=== PATIENT | male | born 1975 | race Hispanic/Latino ===

== ENCOUNTER 2021-03-12 14:05 | Inpatient (IN) | payer OTHER, SELFPAY ==
[~2021-03-12] VITALS: Ht 165.1 cm; Wt 96.2 kg
[2021-03-12] MEDS ORDERED: ASPIRIN 325 MG TABLET ONE (14:38)
[2021-03-12 14:40] LABS: BASOPHILS % (AUTO) 0.5 % (0.0-5.0); EOSINOPHILS % (AUTO) 0.2 % (0.0-8.0); HEMATOCRIT 47.3 % (42-54); LYMPHOCYTES % (AUTO) 23.2 % (21.0-51.0); MEAN CORPUSCULAR HEMOGLOBIN 34.3 pg (27.0-33.0); MEAN CORPUSCULAR HGB CONC 38.7 g/dL (32.0-36.0); MEAN CORPUSCULAR VOLUME 88.6 fL (79-99); MONOCYTES % (AUTO) 6.4 % (3.0-13.0); NEUTROPHILS % (AUTO) 69.1 % (40.0-77.0); PLATELET COUNT (AUTO) 292 K/uL (130-400); RED BLOOD CELL COUNT(AUTO) 5.34 MIL/uL (4.50-6.20); RED CELL DISTRIBUTION WIDTH 11.3 % (11.0-15.5); WHITE BLOOD COUNT (AUTO) 11.3 K/uL (4.8-10.8)
[2021-03-12 14:41] LABS: POTASSIUM 3.6 mmol/L (3.5-5.1)
[2021-03-12 14:46] LABS: ALBUMIN 4.2 g/dL (3.5-5.0); BILIRUBIN,TOTAL 0.8 mg/dL (0.2-1.0); TOTAL PROTEIN, SERUM 7.8 g/dL (6.0-8.3)
[2021-03-12] MEDS ORDERED: IOHEXOL-350 75 ML VIAL IV ONE (15:56)
[2021-03-12] MEDS ORDERED: NITROGLYCERIN 0.4 MG SL TAB SL PRN (16:00)
[2021-03-12] MEDS ORDERED: METOPROLOL TARTRATE 25 MG TAB PO SCH ×2 (16:00→21:00)
[2021-03-12 16:18] LABS: APPEARANCE,URINE Clear (CLEAR); BILIRUBIN,URINE Negative (NEGATIVE); COLOR,URINE Yellow (YELLOW); GLUCOSE, URINE (UA) >=1000 mg/dL (NEGATIVE); KETONES,URINE >=80 mg/dL (NEGATIVE); LEUKOCYTE ESTERASE ,URINE Negative (NEGATIVE); NITRATE,URINE Negative (NEGATIVE); OCCULT BLOOD,URINE Negative (NEGATIVE); PROTEIN,URINE Negative (NEGATIVE); UROBILINOGEN,URINE 0.2 mg/dL (0.2-1.0)
[2021-03-12 16:21] LABS: HEMOGLOBIN A1C 10.3 % (4.0-6.0)
[2021-03-12] MEDS ORDERED: HEPARIN 5,000 UNIT VIAL ONE (16:25)
[2021-03-12] MEDS ORDERED: HEPARIN 25,000 UNITS/250ML D5W 250 ML IV ONE (16:26)
[2021-03-12 16:37] LABS: CHOLESTEROL 348 mg/dL (<200); LDL DIRECT 83 mg/dL (0-99)
[2021-03-12 16:51] LABS: BACTERIA,URINE Few /HPF (None Seen); MUCUS,URINE Rare LPF (None Seen); RBC,URINE 0-1 /HPF (0-1); SQUAMOUS EPITHELIAL CELL,UR 0-2 /HPF (0-2); WBC,URINE 0-1 /HPF (0-1)
[2021-03-12 16:53] LABS: HDL CHOLESTEROL 343 mg/dL (29-71); TRIGLYCERIDES 2130 mg/dL (30-200)
[2021-03-12] MEDS ORDERED: CLOPIDOGREL 300MG TAB ONE ×2 (17:33→22:55)
[2021-03-12] MEDS ORDERED: METOPROLOL TARTRATE 25 MG TAB ONE (17:34)
[2021-03-12] MEDS ORDERED: CLOPIDOGREL 300MG TAB PO SCH (17:45)
[2021-03-12] MEDS ORDERED: PHARMACY COMMUNICATION MISC SCH (18:00)
[2021-03-12] MEDS ORDERED: HEPARIN 5,000 UNIT VIAL IV PRN (20:15)
[2021-03-12] MEDS ORDERED: HEPARIN 25000 UNITS/D5W 250ML IV SCH (20:15)
[2021-03-12] MEDS ORDERED: ATORVASTATIN 20 MG TABLET PO SCH (21:00)
[2021-03-12] MEDS: INSULIN HUMULIN R 100 UNIT/ML 3ML SQ SCH (21:00)
[2021-03-12] MEDS: FISH OIL 1000 MG/CAP PO SCH (21:00)
[2021-03-12] MEDS ORDERED: INSULIN GLARGINE 100 UNITS/ML 10 ML VIAL SQ SCH (21:00)
[2021-03-12] MEDS ORDERED: ATORVASTATIN 40 MG TABLET ONE (21:27)
[2021-03-12] MEDS ORDERED: INSULIN HUMULIN R 100 UNIT/ML 3ML ONE (21:28)
[2021-03-12] MEDS ORDERED: NITROGLYCERIN 1GM OINT 1 INCH/1GM TD ONE (22:55)
[2021-03-12] MEDS ORDERED: LORAZEPAM 2 MG/ML 1 ML VIAL IVP ONE (23:45)
[2021-03-12] MEDS ORDERED: LORAZEPAM 2 MG/ML 1 ML VIAL ONE (23:45)
[2021-03-13 00:54] LABS: INR 1.18 (0.85-1.15); PARTIAL THROMBOPLASTIN TIME 57.4 SEC (26.3-35.5); PROTHROMBIN TIME 12.2 SEC (9.6-11.6)
[2021-03-13 01:22] VITALS: BP 117/82
[2021-03-13 05:24] LABS: BASOPHILS % (AUTO) 0.5 % (0.0-5.0); EOSINOPHILS % (AUTO) 0.1 % (0.0-8.0); HEMATOCRIT 47.1 % (42-54); LYMPHOCYTES % (AUTO) 15.3 % (21.0-51.0); MEAN CORPUSCULAR HGB CONC 36.7 g/dL (32.0-36.0); MEAN CORPUSCULAR VOLUME 89.7 fL (79-99); MONOCYTES % (AUTO) 7.1 % (3.0-13.0); NEUTROPHILS % (AUTO) 76.2 % (40.0-77.0); PLATELET COUNT (AUTO) 261 K/uL (130-400); RED BLOOD CELL COUNT(AUTO) 5.25 MIL/uL (4.50-6.20); RED CELL DISTRIBUTION WIDTH 11.5 % (11.0-15.5); WHITE BLOOD COUNT (AUTO) 11.9 K/uL (4.8-10.8)
[2021-03-13 05:37] LABS: INR 1.05 (0.85-1.15); PARTIAL THROMBOPLASTIN TIME 25.9 SEC (26.3-35.5); PROTHROMBIN TIME 10.9 SEC (9.6-11.6)
[2021-03-13 05:58] LABS: POTASSIUM 4.2 mmol/L (3.5-5.1)
[2021-03-13 06:04] LABS: TROPONIN I 15.62 ng/mL (0.00-0.06)
[2021-03-13] MEDS ORDERED: NITROGLYCERIN 1GM OINT 1 INCH/1GM TD SCH ×2 (06:30)
[2021-03-13] MEDS: INSULIN HUMULIN R 100 UNIT/ML 3ML SQ SCH ×2 (07:30→11:30)
[2021-03-13 08:00] VITALS: BP 121/76
[2021-03-13] MEDS ORDERED: CLOPIDOGREL 75MG TAB PO SCH (09:00)
[2021-03-13] MEDS ORDERED: TICAGRELOR 90 MG TABLET PO SCH (09:00)
[2021-03-13] MEDS ORDERED: COMPOUND IV REFRIGERATED 1 EACH IVSOLN MISC PRN (09:00)
[2021-03-13] MEDS: FISH OIL 1000 MG/CAP PO SCH (09:00)
[2021-03-13] MEDS ORDERED: METOPROLOL TARTRATE 25 MG TAB PO SCH (09:00)
[2021-03-13] MEDS ORDERED: FOLIC ACID 5 MG/ML VIAL IV SCH (09:00)
[2021-03-13] MEDS ORDERED: ASPIRIN 81MG CHEW TAB PO SCH (09:00)
[2021-03-13] MEDS ORDERED: THIAMINE HCL 100 MG/ML 2ML VIAL IVP SCH (09:00)
[2021-03-13 11:16] VITALS: BP 114/74
[2021-03-13] MEDS ORDERED: SODIUM BICARB 50MEQ 50ML VIAL 50 ML ONE (14:19)
[2021-03-13] MEDS ORDERED: BIVALIRUDIN 250 MG/VIAL IV ONE (14:19)
[2021-03-13] MEDS ORDERED: MIDAZOLAM HCL 1 MG/ML 2ML VIAL ONE (14:20)
[2021-03-13] MEDS ORDERED: NICARDIPINE 25MG INJ IV ONE (14:20)
[2021-03-13] MEDS ORDERED: NITROGLYCERIN 2 MG VIAL IV ONE (14:20)
[2021-03-13] MEDS ORDERED: HEPARIN 10,000 UNIT/10ML (1,000 UNIT/ML) VIAL ONE (14:20)
[2021-03-13] MEDS ORDERED: FENTANYL CITRATE PF 50 MCG/1 ML 2ML VIAL ONE (14:20)
[2021-03-13] MEDS ORDERED: IOHEXOL-350 75 ML VIAL IV ONE ×2 (14:20→14:24)
[2021-03-13] MEDS ORDERED: LIDOCAINE HCL 400MG/20ML VIAL ONE (14:21)
== END 2021-03-13 14:54 | disposition left against medical advice (07) | DRG 282 ==
LOC: EDH 14:05 → EDHIP 14:06 → 4DH 03-13 00:53
PROVIDERS: ADMIT Internal Medicine; ATTEND Internal Medicine
DX: I21.4 Non-ST elevation (NSTEMI) myocardial infarction (principal); E11.65 Type 2 diabetes mellitus with hyperglycemia; E78.2 Mixed hyperlipidemia; I25.10 Atherosclerotic heart disease of native coronary artery without angina pectoris; Z20.822 Contact with and (suspected) exposure to COVID-19; E66.9 Obesity, unspecified; Z68.35 Body mass index [BMI] 35.0-35.9, adult; Z91.19 Patient's noncompliance with other medical treatment and regimen; Z83.3 Family history of diabetes mellitus; Z82.49 Family history of ischemic heart disease and other diseases of the circulatory system
CPT/HCPCS: 36415; 71045; 74177; 80048; 80053; 80061; 81001; 82550; 82948; 83036; 83690; 83874; 84443; 84484; 85025; 85378; 85610; 85730; 87426; 93005; G0378; J0583; J1644; J1815; J2060; J2250; J3010; J3490; Q9967; U0003